=== PATIENT | female | born 1985 | race American Indian/Alaskan Native ===

== ENCOUNTER 2017-07-23 22:28 | Inpatient (IN) | payer MEDICAID ==
[2017-07-23] MEDS ORDERED: ACTIDOSE-AQUA PO ONE ×2 (22:55→23:04)
[2017-07-23] MEDS ORDERED: ACTIDOSE SORBITOL PO ONE ×2 (22:55→23:04)
[2017-07-23 23:02] LABS: Basophils % (Auto) 0.3 % (0.0-1.8); Eosinophils % (Auto) 1.2 % (0.0-4.3); Hematocrit 40.4 % (30.3-42.9); Hemoglobin 13.3 gm/dl (10.1-14.3); Mean Corpuscular HGB Conc 33 % (30-34); Mean Corpuscular Hemoglobin 29 pg (28-32); Mean Corpuscular Volume 88 fl (79-97); Platelet Count 220 K/mm3 (140-440); Red Blood Count 4.58 M/mm3 (3.65-5.03); Red Cell Distribution Width 12.4 % (13.2-15.2); White Blood Count 6.8 K/mm3 (4.5-11.0)
[2017-07-23] MEDS ORDERED: ZOFRAN IV ONE (23:04)
[2017-07-23] MEDS ORDERED: NACL 0.9% 1000 ML 1,000 ML IV ONE (23:04)
[2017-07-23 23:22] LABS: Anion Gap 20 mmol/L; BUN/Creatinine Ratio 22; Blood Urea Nitrogen 11 mg/dL (7-17); Calcium 8.8 mg/dL (8.4-10.2); Carbon Dioxide 24 mmol/L (22-30); Chloride 98.4 mmol/L (98-107); Glucose 129 mg/dL (65-100); Sodium 138 mmol/L (137-145)
[2017-07-24] MEDS ORDERED: NACL 0.9% 1000 ML 1,000 ML IV ONE ×3 (00:33→06:00)
[2017-07-24 01:20] LABS: Urine Drugs of Abuse Note Disclamer
[2017-07-24 01:39] LABS: Bilirubin,Urine NEG (Negative); Blood,Urine NEG (Negative); Ketones,Urine NEG (Negative); Leukocyte Esterase,Urine NEG (Negative); Nitrite,Urine NEG (Negative); Protein,Urine <15 mg/dL mg/dL (Negative); Urobilinogen,Urine < 2.0 mg/dL (<2.0)
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
--- NOTE | 2017-07-24 04:09 | XRay Report ---
FINAL REPORT EXAM: XR CHEST 1V AP HISTORY: overdose TECHNIQUE: AP portable view(s) of the chest obtained. PRIORS: None. FINDINGS: No mediastinal shift. Cardiac silhouette is not enlarged. No pneumothorax, effusion, or focal pulmonary opacity identified. No acute skeletal findings. IMPRESSION: No acute pulmonary finding identified.
--- NOTE | 2017-07-24 08:22 | History and Physical Report ---
History of Present Illness Date of examination: 07/24/17 Chief complaint: Seroquel overdose History of present illness: 32-year-old -[place] female with past medical history significant for bipolar disorder, anxiety, depression presented to the emergency department because of complaints she took a bottle of Seroquel. Patient said she has been recently in financial and spiritual trouble and has difficulties taking care of her 2 daughters. Patient said she was on disability and her disability stopped recently. Patient has been feeling depressed, she was started on Wellbutrin recently. She took a bottle of Seroquel with the intent to kill herself. Patient called her mother and the mother called 911 and brought to the emergency department Patient denied nausea, vomiting, fever. Patient denied seizure, palpitation, dose of consciousness. REVIEW OF SYSTEMS: GENERAL: no weight change, no fatigue, no fever HEAD: no head ache EYES: no blurry vision, no acute visual loss EARS: no hearing loss, no discharge, no earache NOSE: no stuffiness, no sneezing, no discharge MOUTH, THROAT AND NECK: no bleeding gums, no sore throat, no swollen neck CARDIAC: no palpitations, no dyspnea on exertion, no orthopnea, no PND, no edema , no chest pain RESPIRATORY: no shortness of breath, no wheeze, no cough, no sputum, no hemoptysis, no asthma GI: no decreased appetite, no nausea, no vomiting, no dysphagia, no diarrhea, no constipation, no abdominal pain URINARY: no change in frequency, no urgency, no polyuria, no hematuria, no incontinence MUSCULOSKELETAL: no muscle weakness, no pain, no joint stiffness NEUROLOGIC: no loss of sensation/numbness, no tingling, no tremors, no weakness/ paralysis HEMATOLOGIC: no anemia, no easy bruising SKIN: no rashes ENDOCRINE: no heat/cold intolerance, no polyuria, no polydipsia, no thyroid problems, no diabetes PSYCHIATRIC: + anxiety, + depression, + suicidal ideations Past History Past Medical History: other (bipolar disorder, depression, anxiety disorder) Past Surgical History: No surgical history Social history: full code. denies: smoking, alcohol abuse, prescription drug abuse, IV drug use Family history: no significant family history Medications and Allergies Allergies Allergy/AdvReac Type Severity Reaction Status Date / Time No Known Allergies Allergy Unverified 07/23/17 22:40 Home Medications Medication Instructions Recorded Confirmed Last Taken Type Quetiapine Fumarate [SEROquel] 100 mg PO 07/24/17 07/23/17 History Active Meds: Active Medications Enoxaparin Sodium (Lovenox) 40 mg SUB-Q DAILY ARLEEN Sodium Chloride (Nacl 0.9% 1000 Ml) 1,000 mls @ 150 mls/hr IV ONCE ONE Stop: 07/24/17 12:39 Sodium Chloride (Nacl 0.9% 1000 Ml) 1,000 mls @ 100 mls/hr IV DIRECT ARLEEN Ondansetron HCl (Zofran) 4 mg IV Q8H PRN PRN Reason: N/V unrelieved by Reglan Pantoprazole Sodium (Protonix) 40 mg PO ONCE ONE Stop: 07/24/17 08:17 Exam - Physical Exam Narrative exam: Not in cardiopulmonary distress. The patient appeared well nourished and normally developed. Vital signs as documented. Head exam is unremarkable. No scleral icterus . Neck is without jugular venous distension, thyromegaly, or carotid bruits. Lungs are clear to auscultation. Cardiac exam reveals regular rate and Rhythm. First and second heart sounds normal. No murmurs, rubs or gallops. Abdominal exam reveals normal bowel sounds, no masses, no organomegaly and no aortic enlargement. Extremities are nonedematous and both femoral and pedal pulses are normal. JUKEBOX CHECKER: Alert and oriented 3. No focal weakness. Psychiatry: Suicidal attempt. - Constitutional Vitals: Temp Pulse Resp BP Pulse Ox 98 F 104 H 31 H 88/59 95 07/24/17 07:16 07/24/17 03:45 07/24/17 03:45 07/24/17 03:45 07/24/17 03:45 Results - Labs CBC & Chem 7: 07/23/17 22:54 07/23/17 22:54 Labs: Laboratory Last Values WBC 6.8 K/mm3 (4.5-11.0) 07/23/17 22:54 RBC 4.58 M/mm3 (3.65-5.03) 07/23/17 22:54 Hgb 13.3 gm/dl (10.1-14.3) 07/23/17 22:54 Hct 40.4 % (30.3-42.9) 07/23/17 22:54 MCV 88 fl (79-97) 07/23/17 22:54 MCH 29 pg (28-32) 07/23/17 22:54 MCHC 33 % (30-34) 07/23/17 22:54 RDW 12.4 % (13.2-15.2) L 07/23/17 22:54 Plt Count 220 K/mm3 (140-440) 07/23/17 22:54 Lymph % (Auto) 38.2 % (13.4-35.0) H 07/23/17 22:54 [place] % (Auto) 9.6 % (0.0-7.3) H 07/23/17 22:54 Eos % (Auto) 1.2 % (0.0-4.3) 07/23/17 22:54 Baso % (Auto) 0.3 % (0.0-1.8) 07/23/17 22:54 Lymph # 2.6 K/mm3 (1.2-5.4) 07/23/17 22:54 [place] # 0.7 K/mm3 (0.0-0.8) 07/23/17 22:54 Eos # 0.1 K/mm3 (0.0-0.4) 07/23/17 22:54 Baso # 0.0 K/mm3 (0.0-0.1) 07/23/17 22:54 Seg Neutrophils % 50.7 % (40.0-70.0) 07/23/17 22:54 Seg Neutrophils # 3.4 K/mm3 (1.8-7.7) 07/23/17 22:54 Sodium 138 mmol/L (137-145) 07/23/17 22:54 Potassium 4.0 mmol/L (3.6-5.0) 07/23/17 22:54 Chloride 98.4 mmol/L (98-107) 07/23/17 22:54 Carbon Dioxide 24 mmol/L (22-30) 07/23/17 22:54 Anion Gap 20 mmol/L 07/23/17 22:54 BUN 11 mg/dL (7-17) 07/23/17 22:54 Creatinine 0.5 mg/dL (0.7-1.2) L 07/23/17 22:54 Estimated GFR > 60 ml/min 07/23/17 22:54 BUN/Creatinine Ratio 22 % 12/05/17 22:54 Glucose 129 mg/dL (65-100) H 07/23/17 22:54 Calcium 8.8 mg/dL (8.4-10.2) 07/23/17 22:54 Urine Color Yellow (Yellow) 07/23/17 01:10 Urine Turbidity Clear (Clear) 07/23/17 01:10 Urine pH 6.0 (5.0-7.0) 07/23/17 01:10 Ur Specific [place] 1.005 (1.003-1.030) 07/23/17 01:10 Urine Protein <15 mg/dl mg/dL (Negative) 07/23/17 01:10 Urine Glucose (UA) Neg mg/dL (Negative) 07/23/17 01:10 Urine Ketones Neg mg/dL (Negative) 07/23/17 01:10 Urine Blood Neg (Negative) 07/23/17 01:10 Urine Nitrite Neg (Negative) 07/23/17 01:10 Urine Bilirubin Neg (Negative) 07/23/17 01:10 Urine Urobilinogen < 2.0 mg/dL (<2.0) 07/23/17 01:10 Ur Leukocyte Esterase Neg (Negative) 07/23/17 01:10 Urine WBC (Auto) 1.0 /HPF (0.0-6.0) 07/23/17 01:10 Urine RBC (Auto) 1.0 /HPF (0.0-6.0) 07/23/17 01:10 U Epithel Cells (Auto) 4.0 /HPF (0-13.0) 07/23/17 01:10 Urine HCG, Qual Negative (Negative) 07/23/17 01:10 Salicylates < 0.3 mg/dL (2.8-20.0) L 07/23/17 22:54 Urine Opiates Screen Presumptive negative 07/23/17 01:10 Urine Methadone Screen Presumptive negative 07/23/17 01:10 Acetaminophen < 15.0 ug/mL (10.0-30.0) 07/23/17 22:54 Ur Barbiturates Screen Presumptive negative 07/23/17 01:10 Ur Phencyclidine Scrn Presumptive negative 07/23/17 01:10 Ur Amphetamines Screen Presumptive negative 07/23/17 01:10 U Benzodiazepines Scrn Presumptive negative 07/23/17 01:10 Urine Cocaine Screen Presumptive negative 07/23/17 01:10 U Marijuana (THC) Screen Presumptive negative 07/23/17 01:10 Drugs of Abuse Note Disclamer 07/23/17 01:10 Plasma/Serum Alcohol < 0.01 gm% (0-0.07) 07/23/17 22:54 - Imaging and Cardiology EKG: image reviewed (No QT prolongation, no tachycardia) Assessment and Plan Assessment and plan: Suicidal attempt Seroquel overdose Bipolar disorder Major depression Anxiety disorder - Patient was given activated charcoal in the emergency department - IV fluids, IV Zofran - Mental health consult - Frequent neuro check, cardiac monitoring for QT prolongation and tachycardia - Watch for neuroleptic malignant syndrome DVT prophylaxis - Lovenox [facility] - If there is deterioration in clinical condition, I will transfer her to the ICU Advance Directives: Yes VTE prophylaxis?: Chemical Plan of care discussed with patient/family: Yes
[2017-07-24] MEDS ORDERED: ZOFRAN IV PRN (08:30)
[2017-07-24] MEDS ORDERED: PROTONIX PO NR (08:30)
[2017-07-24] MEDS: LOVENOX SUB-Q SCH (11:40)
[2017-07-24] MEDS ORDERED: LOVENOX SUB-Q ONE (11:49)
[2017-07-24] MEDS: NACL 0.9% 1000 ML 1,000 ML IV SCH (14:41)
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
[2017-07-25] MEDS: NACL 0.9% 1000 ML 1,000 ML IV SCH ×2 (01:18→11:55)
[2017-07-25] MEDS: LOVENOX SUB-Q SCH (10:10)
--- NOTE | 2017-07-25 12:54 | Progress Note ---
Subjective - Reason for Consult Consult date: 07/25/17 Reason for consult: Psychiatry Follow-up - Chief Complaint Chief complaint: "I was depressed" This is a 32-year-old female with a past psychiatric history of major depression versus bipolar disorder who presents to the ED after overdose on 30 100 mg Seroquel tablets. Today patient is calm and cooperative during the assessment. She stated prior to her attempt to commit suicide she had been manic for several days. She stated taking Wellbutrin and her SI''s increased. When asked about her behavior, she stated, "I need help." She did state when she took the Seroquel she wanted to "." She denies SI/HI's and AVH's. She stated that she slept last night for the first time in days. Mental Status Exam - Vital signs Last Vital Signs Temp 98.5 F 07/25/17 08:00 Pulse 78 07/25/17 08:00 Resp 18 07/25/17 08:00 BP 125/81 07/25/17 08:00 Pulse Ox 99 07/25/17 08:00 - Exam Narrative exam: MSE: Appearance: calm, cooperative Behavior: regular eye contact Speech: regular rate and tone Mood: "okay' Affect: congruent to mood Thought Process: circumstantial Thought Content: denies SI/HI's and AVH's Motor Activity: sitting up in bed Cognition: A/Ox3 Insight: variable Judgment: variable Assessment and Plan Impression: MDD severe recurrent versus Bipolar DO most recent episode depressed. No EKG abnormalities reported per review of the medical record and NMS noted on assessment. Recommendation/Plan: Continue 1013 with placement to [facility] today.
[2017-07-25 15:41] VITALS: BP 113/75
--- NOTE | 2017-07-25 15:44 | Discharge Summary ---
Providers - Providers Date of Admission: 07/24/17 08:03 Attending physician: CAREN BANGURA MD 07/24/17 08:04 Consult to Mental Health [CONS] Stat Reason For Exam: Sucidal ideation Place consult to:: mental health Notified:: yes Primary care physician: [employer]ENT [employer]RI[employer]OR Hospitalization Reason for admission: Sucide attempt, Seroquel overdose Condition: Stable Pertinent studies: CXR normal Hospital course: 32-year-old -[place] female with past medical history significant for bipolar disorder, anxiety, depression presented to the emergency department because of complaints she took a bottle of Seroquel. Patient said she has been recently in financial and spiritual trouble and has difficulties taking care of her 2 daughters. Patient said she was on disability and her disability stopped recently. Patient has been feeling depressed, she was started on Wellbutrin recently. She took a bottle of Seroquel with the intent to kill herself. Patient called her mother and the mother called 911 and brought to the emergency department Patient denied nausea, vomiting, fever. Patient denied seizure, palpitation, dose of consciousness. Patient was given activated charcoal in the emergency department and admitted to the floor. Patient was given IV fluids, was monitored on telemetry for QT prolongation or other cardiac arrhythmia and patient didn't have any QT prolongation or cardiac arrhythmia. Patient was hemodynamically stable. Psychiatry was consulted and transferred to another psych facility because of patient has suicidal ideation. Patient's questions and concerns were addressed at the bedside. Patient was medically stable at the time of discharge. Disposition: DC/TX-[id number] PSY HOSP/PSY UNIT Time spent for discharge: 31 minutes - Discharge Diagnoses (1) Overdose Status: Acute (2) Suicidal ideation Status: Acute Core Measure Documentation - Palliative Care Palliative Care/ Comfort Measures: Not Applicable - Core Measures Any of the following diagnoses?: none Exam - Physical Exam Narrative exam: Not in cardiopulmonary distress. The patient appeared well nourished and normally developed. Vital signs as documented. Head exam is unremarkable. No scleral icterus . Neck is without jugular venous distension, thyromegaly, or carotid bruits. Lungs are clear to auscultation. Cardiac exam reveals regular rate and Rhythm. First and second heart sounds normal. No murmurs, rubs or gallops. Abdominal exam reveals normal bowel sounds, no masses, no organomegaly and no aortic enlargement. Extremities are nonedematous and both femoral and pedal pulses are normal. SENIOR ADVOCATE: Alert and oriented 3. No focal weakness. Psychiatry: Suicidal attempt. - Constitutional Vitals: Temp Pulse Resp BP Pulse Ox 98.5 F 78 18 125/81 99 07/25/17 08:00 07/25/17 08:00 07/25/17 08:00 07/25/17 08:00 07/25/17 08:00 Plan Activity: no restrictions Weight Bearing Status: Full Weight Bearing Diet: regular Follow up with: PRIMARY CAREMD [Primary Care Provider] - 3-5 Days
== END 2017-07-25 18:35 | DRG 918 ==
LOC: ED 22:28 → 3A 07-24 08:03
PROVIDERS: ADMIT Internal Medicine; ATTEND Internal Medicine
DX: T43.592A Poisoning by other antipsychotics and neuroleptics, intentional self-harm, initial encounter (principal); R45.851 Suicidal ideations; X83.8XXA Intentional self-harm by other specified means, initial encounter; F31.9 Bipolar disorder, unspecified; J45.909 Unspecified asthma, uncomplicated; F41.9 Anxiety disorder, unspecified; Y92.89 Other specified places as the place of occurrence of the external cause
CPT/HCPCS: 36415; 71010; 80048; 80307; 80320; 81001; 81025; 85025; 93005; 93010; 99285; G0480; J1650; J2405; J7030

== ENCOUNTER 2017-11-13 23:37 | Emergency (ER) | payer MEDICAID ==
[2017-11-14 00:26] LABS: Basophils % (Auto) 0.6 % (0.0-1.8); Eosinophils # (Auto) 0.1 K/mm3 (0.0-0.4); Eosinophils % (Auto) 1.8 % (0.0-4.3); Hematocrit 38.9 % (30.3-42.9); Hemoglobin 12.7 gm/dl (10.1-14.3); Lymphocytes # (Auto) 3.6 K/mm3 (1.2-5.4); Lymphocytes % (Auto) 50.8 % (13.4-35.0); Mean Corpuscular HGB Conc 33 % (30-34); Mean Corpuscular Hemoglobin 30 pg (28-32); Mean Corpuscular Volume 90 fl (79-97); Monocytes # (Auto) 0.8 K/mm3 (0.0-0.8); Monocytes % (Auto) 10.7 % (0.0-7.3); Platelet Count 245 K/mm3 (140-440); Red Blood Count 4.31 M/mm3 (3.65-5.03); Red Cell Distribution Width 12.4 % (13.2-15.2)
[2017-11-14 00:42] LABS: Alanine Aminotransferase 13 units/L (7-56); Albumin 3.9 g/dL (3.9-5); BUN/Creatinine Ratio 17; Blood Urea Nitrogen 10 mg/dL (7-17); Hemolysis Index 0
[2017-11-14 02:21] LABS: Bilirubin,Urine NEG (Negative); Blood,Urine NEG (Negative); Color,Urine Yellow (Yellow); Protein,Urine <15 mg/dL mg/dL (Negative); Urobilinogen,Urine < 2.0 mg/dL (<2.0); WBC,Urine < 1.0 /HPF (0.0-6.0)
[2017-11-14] MEDS ORDERED: BENTYL PO ONE (02:57)
[2017-11-14] MEDS ORDERED: TORADOL IM ONE (02:57)
[2017-11-14] MEDS ORDERED: TYLENOL PO ONE (02:57)
--- NOTE | 2017-11-14 03:01 | Emergency Department Report ---
ED General Adult HPI - General Chief complaint: Abdominal Pain Stated complaint: BACK PAIN Time Seen by Provider: 11/14/17 02:32 Source: patient, RN notes reviewed, old records reviewed Mode of arrival: Ambulatory Limitations: No Limitations - History of Present Illness Initial comments: This is a 32-year-old female who was previously unknown to this provider. Primary care doctor is Dr. Suarez Past medical history includes anxiety, depression bipolar, cardiomyopathy The patient presents to the ER with complaint of abdominal pain, back pain and diarrhea. The back pain is paralumbar, lower back, present for 6 weeks, was initially associated with hematuria, and is reported to feel like "something is bursting in my back." Her primary care doctor give the patient "2 courses of antibiotics for possible urinary infection." Patient denies dysuria, and reports of hematuria has resolved. Abdominal pain is diffuse and achy, present for 2 weeks, does not radiate anywhere, and does not have exacerbating or relieving factors. No nausea. No vomiting. Patient reports 5-6 watery episodes of diarrhea in the past 2 days. No hematemesis. No bright red blood per rectum. -: Gradual, week(s) Location: back, abdomen Radiation: non-radiation Quality: aching Consistency: intermittent Improves with: other Worsens with: other Associated Symptoms: other (as per history of present illness). denies: confusion, chest pain, cough, diaphoresis, fever/chills, headaches, loss of appetite, malaise, nausea/vomiting, rash, seizure, shortness of breath, syncope , weakness - Related Data Home Medications Medication Instructions Recorded Confirmed Last Taken OXcarbazepine [Trileptal] 600 mg PO QDAY 07/24/17 07/24/17 Unknown Quetiapine Fumarate [SEROquel] 100 mg PO QHS 07/24/17 07/24/17 07/23/17 Venlafaxine [Effexor] 150 mg PO QDAY 07/24/17 07/24/17 Unknown Zolpidem [Ambien] 10 mg PO QHS 07/24/17 07/24/17 Unknown buPROPion [Wellbutrin] 100 mg PO DAILY 07/24/17 07/24/17 Unknown Previous Rx's Medication Instructions Recorded Last Taken Type Acetaminophen [Tylenol Arthritis] 650 mg PO Q6HR PRN #30 tablet.er 11/14/17 Unknown Rx Ibuprofen [Motrin] 600 mg PO Q8H PRN #30 tablet 11/14/17 Unknown Rx Ondansetron [Zofran Odt] 4 mg PO Q8HR PRN #20 tab.rapdis 11/14/17 Unknown Rx Allergies Allergy/AdvReac Type Severity Reaction Status Date / Time No Known Allergies Allergy Unverified 07/23/17 22:40 ED Review of Systems ROS: Stated complaint: BACK PAIN Other details as noted in HPI Comment: All other systems reviewed and negative (see history of present illness ) ED Past Medical Hx - Past Medical History Previous Medical History?: Yes Hx Psychiatric Treatment: Yes (anxiety/depression/bipolar) Hx Asthma: Yes Additional medical history: post cardiomyopathy - Surgical History Past Surgical History?: Yes Additional Surgical History: cyst removal - Social History Smoking Status: Never Smoker Substance Use Type: None - Medications Home Medications: Home Medications Medication Instructions Recorded Confirmed Last Taken Type OXcarbazepine [Trileptal] 600 mg PO QDAY 07/24/17 07/24/17 Unknown History Quetiapine Fumarate [SEROquel] 100 mg PO QHS 07/24/17 07/24/17 07/23/17 History Venlafaxine [Effexor] 150 mg PO QDAY 07/24/17 07/24/17 Unknown History Zolpidem [Ambien] 10 mg PO QHS 07/24/17 07/24/17 Unknown History buPROPion [Wellbutrin] 100 mg PO DAILY 07/24/17 07/24/17 Unknown History Acetaminophen [Tylenol Arthritis] 650 mg PO Q6HR PRN #30 tablet.er 11/14/17 Unknown Rx Ibuprofen [Motrin] 600 mg PO Q8H PRN #30 tablet 11/14/17 Unknown Rx Ondansetron [Zofran Odt] 4 mg PO Q8HR PRN #20 tab.rapdis 11/14/17 Unknown Rx ED Physical Exam - General Limitations: No Limitations General appearance: alert, anxious - Head Head exam: Present: atraumatic, normocephalic - Eye Eye exam: Present: normal appearance, EOMI. Absent: nystagmus - ENT ENT exam: Present: normal exam, normal orophraynx, mucous membranes moist, normal external ear exam - Neck Neck exam: Present: normal inspection, full ROM - Respiratory Respiratory exam: Present: normal lung sounds bilaterally. Absent: respiratory distress - Cardiovascular Cardiovascular Exam: Present: regular rate, normal rhythm, normal heart sounds. Absent: systolic murmur, diastolic murmur, rubs, gallop - GI/Abdominal GI/Abdominal exam: Present: soft, normal bowel sounds. Absent: distended, tenderness, guarding, rebound, rigid, pulsatile mass - Extremities Exam Extremities exam: Present: normal inspection, full ROM, normal capillary refill. Absent: pedal edema, joint swelling, calf tenderness - Back Exam Back exam: Present: normal inspection, full ROM. Absent: tenderness, CVA tenderness (R), paraspinal tenderness, vertebral tenderness - Neurological Exam Neurological exam: Present: alert, oriented X3, CN II-XII intact, normal gait, other (Extraocular movements intact. Tongue midline. No facial droop. Facial sensation intact to light touch in the V1, V2, V3 distribution bilaterally. 5 and 5 strength in 4 extremities.. Sensation is intact to light touch in 4 extremities.). Absent: motor sensory deficit - Psychiatric Psychiatric exam: Present: normal affect, normal mood - Skin Skin exam: Present: warm, dry, intact, normal color. Absent: rash ED Course Vital Signs 11/13/17 11/14/17 11/14/17 23:39 00:03 02:11 Temperature 97.9 F 97.9 F 97.7 F Pulse Rate 91 H 91 H 83 Respiratory 16 18 20 Rate Blood Pressure 129/80 129/80 Blood Pressure 135/86 [Left] O2 Sat by Pulse 97 97 100 Oximetry 11/14/17 03:00 Temperature Pulse Rate Respiratory Rate Blood Pressure 119/72 Blood Pressure [Left] O2 Sat by Pulse 99 Oximetry - Reevaluation(s) Reevaluation #1: 11/14/17 04:17 CT scan negative for acute disease. Suggest constipation. Patient instructed to follow-up with outpatient primary care doctor or urology for her resolved hematuria. ED Medical Decision Making - Lab Data Result diagrams: 11/14/17 00:11 11/14/17 00:11 Vital Signs 11/13/17 11/14/17 11/14/17 23:39 00:03 02:11 Temperature 97.9 F 97.9 F 97.7 F Pulse Rate 91 H 91 H 83 Respiratory 16 18 20 Rate Blood Pressure 129/80 129/80 Blood Pressure 135/86 [Left] O2 Sat by Pulse 97 97 100 Oximetry Labs 11/14/17 11/14/17 11/14/17 00:11 00:11 00:11 WBC 7.1 RBC 4.31 Hgb 12.7 Hct 38.9 MCV 90 MCH 30 MCHC 33 RDW 12.4 L Plt Count 245 Lymph % (Auto) 50.8 H [place] % (Auto) 10.7 H Eos % (Auto) 1.8 Baso % (Auto) 0.6 Lymph # 3.6 [place] # 0.8 Eos # 0.1 Baso # 0.0 Seg Neutrophils % 36.1 L Seg Neutrophils # 2.6 Sodium 141 Potassium 4.8 Chloride 101.5 Carbon Dioxide 30 Anion Gap 14 BUN 10 Creatinine 0.6 L Estimated GFR > 60 BUN/Creatinine Ratio 17 Glucose 98 Calcium 9.0 Total Bilirubin < 0.20 AST 21 ALT 13 Alkaline Phosphatase 61 Total Protein 6.7 Albumin 3.9 Albumin/Globulin Ratio 1.4 HCG, Qual Negative Urine Color Urine Turbidity Urine pH Ur Specific [place] Urine Protein Urine Glucose (UA) Urine Ketones Urine Blood Urine Nitrite Urine Bilirubin Urine Urobilinogen Ur Leukocyte Esterase Urine WBC (Auto) Urine RBC (Auto) U Epithel Cells (Auto) 11/14/17 Unknown WBC RBC Hgb Hct MCV MCH MCHC RDW Plt Count Lymph % (Auto) [place] % (Auto) Eos % (Auto) Baso % (Auto) Lymph # [place] # Eos # Baso # Seg Neutrophils % Seg Neutrophils # Sodium Potassium Chloride Carbon Dioxide Anion Gap BUN Creatinine Estimated GFR BUN/Creatinine Ratio Glucose Calcium Total Bilirubin AST ALT Alkaline Phosphatase Total Protein Albumin Albumin/Globulin Ratio HCG, Qual Urine Color Yellow Urine Turbidity Clear Urine pH 7.0 Ur Specific [place] 1.010 Urine Protein <15 mg/dl Urine Glucose (UA) Neg Urine Ketones Neg Urine Blood Neg Urine Nitrite Neg Urine Bilirubin Neg Urine Urobilinogen < 2.0 Ur Leukocyte Esterase Neg Urine WBC (Auto) < 1.0 Urine RBC (Auto) 1.0 U Epithel Cells (Auto) 1.0 - Radiology Data Radiology results: report reviewed, image reviewed - Medical Decision Making Differential diagnosis, including but not limited to: Renal colic, renal malignancy, urinary tract infection, enteritis, intra-abdominal infection Assessment and plan: 32-year-old female with reported 6 weeks of back pain, 2 weeks of abdominal pain. She is afebrile with reassuring vital signs, has a benign abdominal exam, normal neurologic examination. Her outpatient primary care doctor has already ordered an outpatient CT scan, but in the interest of expediting the patient's workup we will perform the CT scan today. Her symptoms will be treated. There is no pulsatile abdominal mass and her exam is not consistent with epidural compression syndrome. Laboratory studies are unremarkable at this time, and she reports an allergy/ intolerance to IV contrast. Critical care attestation.: If time is entered above; I have spent that time in minutes in the direct care of this critically ill patient, excluding procedure time. ED Disposition Clinical Impression: Abdominal pain, Lower back pain Disposition: TO HOME OR SELFCARE Is pt being admited?: No Does the pt Need Aspirin: No Condition: Stable Instructions: Abdominal Pain (ED) Additional Instructions: The pain medication, nausea medication as needed/directed. Follow up with her primary care doctor within the next week. Follow up with a primary care doctor or urology specialist within the next month or resolved blood in the urine. Not following up as recommended and a resultant undiagnosed tumor, cancer, malignancy. Return to the ER right away with new pain, worsened pain, migration of pain, fevers, chills, lethargy, projectile vomiting, change in mental status, confusion, inability to tolerate liquid feeds. Referrals: RACHEAL NORMAN MD [Staff Physician] - 3-5 Days RANDY SUAREZ MD [Staff Physician] - 3-5 Days
[2017-11-14 03:21] VITALS: BP 119/72
--- NOTE | 2017-11-14 04:00 | Cat Scan Report ---
FINAL REPORT EXAM: CT ABDOMEN PELVIS WO CON HISTORY: back pain abd pain COMPARISON: None available. TECHNIQUE: Contiguous axial images were obtained. Additional sagittal and coronal reformatted images were obtained. FINDINGS: Lung bases are clear. No calcified gallstones. Liver, spleen, pancreas and adrenal glands are unremarkable. No nephrolithiasis or hydronephrosis. Aorta and IVC are normal in caliber. No distal ureteral urinary bladder calculi. IUD is present along midline of the uterus. Ovaries are grossly unremarkable. No free fluid or lymphadenopathy. Moderate large amount of stool in the colon. There is inspissated stool versus appendicolith within the appendix. The appendix measures 6 millimeters in greatest diameter. No adjacent fat stranding or fluid. No focal inflammatory changes the bowel. Bony pelvis and lumbar spine are grossly intact. IMPRESSION: No gross focal inflammatory changes of the abdomen and pelvis. No obstructive uropathy or urolithiasis. Large and small bowel loops are normal in caliber. Moderate large amount of stool in the colon. The appendix is normal in caliber.
== END 2017-11-14 05:28 | disposition home or self-care (01) ==
LOC: ED 23:37
DX: R10.9 Unspecified abdominal pain (principal); M54.5 Low back pain
CPT/HCPCS: 36415; 74176; 80053; 81001; 84703; 85025; 96372; 99284; J1885